=== PATIENT | female | born 1990 | race Caucasian/White ===

== ENCOUNTER 2020-05-27 14:39 | Outpatient (REF) | payer BC, SELFPAY | END 2020-05-27 14:40 | disposition home or self-care (01) | LOC: HO.LAB 14:39 | PROVIDERS: Visit Provider Internal Medicine | DX: Z20.822 Contact with and (suspected) exposure to COVID-19 (principal) | CPT/HCPCS: 36415; C9803; U0003; U0005 ==

== ENCOUNTER 2020-06-02 15:02 | Outpatient (REF) | payer BC, SELFPAY | END 2020-06-02 15:03 | disposition home or self-care (01) | LOC: HO.LAB 15:02 | PROVIDERS: Visit Provider Internal Medicine | DX: Z20.822 Contact with and (suspected) exposure to COVID-19 (principal) | CPT/HCPCS: 36415; C9803; U0003; U0005 ==

== ENCOUNTER 2020-07-04 12:54 | Outpatient (REF) | payer BC, SELFPAY ==
[2020-07-04 14:05] LABS: COVID-19 Test Negative (Negative); IDNOW Serial# 55D5AD1C
== END 2020-07-04 12:55 | disposition home or self-care (01) ==
LOC: HO.LAB 12:54
PROVIDERS: Visit Provider Internal Medicine
DX: Z20.822 Contact with and (suspected) exposure to COVID-19 (principal)
CPT/HCPCS: 36415; 87635; C9803

== ENCOUNTER 2024-12-04 00:57 | Emergency (ER) | payer BC, SELFPAY ==
[2024-12-04 01:00] VITALS: BP 144/71; PULSE 109; RESP 20; TEMP 36.4; O2SAT 99; BMI 23.2
[2024-12-04 01:19] LABS: MANUAL DIFF FLAG NO
[2024-12-04 01:22] LABS: Hematocrit 33.7 % (37.0-47.0); Hemoglobin 11.2 g/dl (12.0-16.0); Imm Gran Abs Auto 0.04 X10*3/uL (0.00-0.03); Imm Gran Pct Auto 0.3 % (0.0-0.4); Lymphocytes Absolute Auto 0.9 X10*3/uL (1.2-4.9); Mean Corpuscular HGB Conc 33.2 g/dl (31.0-35.0); Mean Corpuscular Hemoglobin 26.0 pg (27.0-33.0); Mean Corpuscular Volume 78.2 fL (80.0-98.0); NRBC Abs Auto 0.000 X10*3/uL (0.0-0.012); NRBC Pct Auto 0.0 /100WBC (0.0-0.2); Platelet Count 235 X10*3/uL (160-400); Red Blood Count 4.31 X10*6/uL (4.20-5.50); White Blood Count 11.7 X10*3/uL (4.8-10.8)
[2024-12-04 01:51] LABS: Alanine Aminotransferase 28 U/L (0-31); Albumin Level 4.8 g/dL (3.5-5.0); Alkaline Phosphatase 61 U/L (39-117); Anion Gap 14 (12-20); Aspartate Amino Transferase 29 U/L (5-31); Blood Urea Nitrogen 11 mg/dL (9-16); Calcium 9.3 mg/dL (8.4-10.2); Carbon Dioxide 23 mmol/L (22-29); Chloride 109 mmol/L (96-108); Creatinine Clr Calc Pharmacy 84.2; Estimated Glomerular Filt Rate > 60; Lipase 24 U/L (8-78); Potassium 3.8 mmol/L (3.3-5.1); Sodium 142 mmol/L (135-145); Total Protein 8.1 g/dL (6.5-8.0)
[2024-12-04 05:02] LABS: Appearance Urine Clear; Glucose Urine UA Negative (Negative); PH 5.0 (5.0-9.0); Specific Gravity - Urine 1.025 (1.005-1.025); UMIC TRIGGER UACC YES; UPreg QC Valid YES
--- NOTE | 2024-12-04 05:07 | PC.NURSE ---
Pt medicated as per MAY. Tolerated enema well. Effectiveness pending
[2024-12-04 05:14] LABS: UACC Culture Trigger YES
--- NOTE | 2024-12-04 05:47 | PC.NURSE ---
PT moved small bowel in bathroom and vomited on the [facility] bathroom floor.
--- NOTE | 2024-12-04 06:52 | ED.ABDPAIN ---
HPI - Abdominal Pain General Chief Complaint: Abdominal Pain Stated Complaint: right side pain Time Seen by Provider: 12/04/24 03:54 Source: patient Mode of arrival: ambulatory Limitations: no limitations History of Present Illness ED Provider: Dr. Dennise Leon HPI narrative: 34-year-old female with a history of constipation presenting with left lower quadrant abdominal pain ongoing for the last several days. Admits she has not had a bowel movement in the last 3 days. Admits that this has been an ongoing issue for her. Describes nausea but no vomiting. Denies dysuria, hematuria, hematochezia or melena, vaginal bleeding or discharge, fevers or chest pain. Had been feeling well prior to this. No known sick contacts or recent antibiotic use. Does admit to poor fluid intake and fiber intake. Related Data Previous Rx's ?Medication ?Instructions ?Recorded cephalexin 500 mg capsule 500 mg PO QID 7 days #28 caps 12/04/24 psyllium husk 3.4 gram/5.4 gram 1 tbsp PO DAILY #660 grams 12/04/24 oral powder Allergies Allergy/AdvReac Type Severity Reaction Status Date / Time No Known Allergies (No Known Allergy Verified 12/04/24 01:02 Allergies*) Review of Systems Review of Systems As per HPI, full review of systems performed and negative but for the above mentioned pertinent positives and negatives. [facility] Social History Social History Advance Directives: No Advance Directives Information Provided: Yes Do you have a plan to hurt others: No Plan Physical Exam ED Exam Exam: GENERAL: Ill-Appearing, appears uncomfortable. SKIN: Normal skin color for ethnicity, warm, dry, no rashes noted. HEENT: Normocephalic, atraumatic, no stridor, dry mucous membranes, dentition intact, EOMI, PERRLA. NECK: Soft, supple, full ROM, midline structures nontender, no step-offs, no deformities, no lymphadenopathy. CHEST: Heart regular rhythm, no murmurs, symmetric chest rise and fall. PULMONARY: Clear to auscultation bilaterally, diminished at the bases, no labored breathing, no wheezes/rhales/rhonchi. ABDOMINAL: Softly distended, diffusely tender to palpation without rebound or guarding, quiet bowel sounds in all quadrants. : Deferred. MUSCULOSKELETAL: Normal tone, full range of motion, no deformities, no peripheral edema. NEURO: Alert and oriented x3, CN II through XII intact, equal strength and sensation bilateral upper and lower extremities, no focal neurologic deficits. PSYCHIATRIC: Flat affect, fluid speech, good eye contact and appropriate demeanor. Vital Signs: Vital Signs - 24 hr 12/04/24 01:00 Temperature 97.6 F Pulse Rate 109 H Respiratory Rate 20 Blood Pressure 144/71 H Pulse Oximetry 99 Oxygen Delivery Method Room Air BMI result Body Mass Index 23.2 Medical Decision Making Medical Decision Making [facility] Narrative: This patient presents today with a chief complaint of abdominal pain. Differential diagnosis for this patient is broad. It includes appendicitis, cholecystitis, bowel obstruction, peptic ulcer disease, pyelonephritis, vascular pathology, among many others. A broad-based workup based on history and physical examination was obtained. Patient has evidence of urinary tract infection. Covered with Keflex. She also had severe constipation and is requesting an enema. She was provided with 1 and had a significant bowel movement. Using shared decision making, plan for discharge home to follow-up with primary care and/or specialist. Patient understands and agrees with plan for discharge. Discharged home in stable condition. Differential Diagnosis Differential Diagnoses: The differential diagnosis associated with the presentation includes (As above) Admission/Observation Consideration of admission/observation: Escalation of care including admission/observation considered Lab Data [facility] Lab Attestation statement: I reviewed the patient's lab results. 12/04/24 01:15 12/04/24 01:15 Labs: Lab Results 12/04/24 12/04/24 Range/Units 01:15 04:54 WBC 11.7 H (4.8-10.8) X10*3/uL RBC 4.31 (4.20-5.50) X10*6/uL Hgb 11.2 L (12.0-16.0) g/dl Hct 33.7 L (37.0-47.0) % MCV 78.2 L (80.0-98.0) fL MCH 26.0 L (27.0-33.0) pg MCHC 33.2 (31.0-35.0) g/dl RDW 14.8 (11.0-16.0) % Plt Count 235 (160-400) X10*3/uL MPV 11.2 (9.4-12.3) fL Immature Gran % (Auto) 0.3 (0.0-0.4) % Neut % (Auto) 84.6 H (45-73) % Lymph % (Auto) 7.9 L (20-40) % [place] % (Auto) 6.3 (2-11) % Eos % (Auto) 0.7 (0-4) % Baso % (Auto) 0.2 (0-2) % Lymph # (Auto) 0.9 L (1.2-4.9) X10*3/uL [place] # (Auto) 0.7 (0.1-1.2) X10*3/uL Eos # (Auto) 0.1 (0.0-0.4) X10*3/uL Baso # (Auto) 0.0 (0.0-0.2) X10*3/uL Abs Immat Gran (auto) 0.04 H (0.00-0.03) X10*3/uL Absolute Neuts (auto) 9.9 H (2.0-8.3) x10*3/uL Absolute Nucleated RBC 0.000 (0.0-0.012) X10*3/uL Nucleated RBC % (auto) 0.0 (0.0-0.2) /100WBC Sodium 142 (135-145) mmol/L Potassium 3.8 (3.3-5.1) mmol/L Chloride 109 H (96-108) mmol/L Carbon Dioxide 23 (22-29) mmol/L Anion Gap 14 (12-20) BUN 11 (9-16) mg/dL Creatinine 0.82 (0.5-1.4) mg/dL Estim Creat Clear Calc 84.2 Estimated GFR > 60 Random Glucose 126 H (60-115) mg/dL Calcium 9.3 (8.4-10.2) mg/dL Total Bilirubin 0.2 (0.0-1.0) mg/dL AST 29 (5-31) U/L ALT 28 (0-31) U/L Alkaline Phosphatase 61 (39-117) U/L Total Protein 8.1 H (6.5-8.0) g/dL Albumin 4.8 (3.5-5.0) g/dL Lipase 24 (8-78) U/L Urine Color Yellow Urine Appearance Clear Urine pH 5.0 (5.0-9.0) Ur Specific [place] 1.025 (1.005-1.025) Urine Protein Trace (Neg-Trace) mg/dL Urine Glucose (UA) Negative (Negative) mg/dL Urine Ketones 15 (Negative) mg/dL Urine Blood Moderate (2+) H (Negative) Urine Nitrite Negative (Negative) Ur Leukocyte Esterase Small (1+) H (Negative) Urine RBC 11-20 H (0-2) /HPF Urine WBC 6-10 H (0-5) /HPF Ur Squamous Epith Cells 6-10 (0-2) /HPF Urine Bacteria Trace (None Seen) Hyaline Casts 0-2 (0-2) /LPF Urine Test NEGATIVE (NEGATIVE) Independent Historian Clinical information obtained from an independent historian. History obtained from or confirmed by: Spouse External Record Review External record reviewed: Inpatient record Prescription Management I considered prescription management with: Antibiotic and Other (Fiber) Chronic Conditions Patient?s care impacted by: Other (Chronic constipation) Medications Administered Discontinued Medications Generic Name Dose Route Start Last Admin Trade Name Freq PRN Reason Stop Dose Admin Bisacodyl 10 mg 12/04/24 04:06 12/04/24 04:39 Bisacodyl 5 Mg Tablet. PO 12/04/24 04:07 10 mg ONCE ONE Administration Cephalexin HCl 500 mg 12/04/24 06:57 12/04/24 07:18 Cephalexin 500 Mg Capsule PO 12/04/24 06:58 500 mg ONCE ONE Administration Magnesium Citrate 300 ml 12/04/24 04:06 12/04/24 04:39 Magnesium Citrate 300 Ml Solution PO 12/04/24 04:07 300 ml ONCE ONE Administration Ondansetron HCl 4 mg 12/04/24 05:47 12/04/24 06:51 Ondansetron Odt 4 Mg Tab.Rapdis TRANSLINGU 12/04/24 05:48 Not Given ONCE ONE Sodium Biphosphate/Sodium Phosphate 133 ml 12/04/24 04:06 12/04/24 04:39 Sodium Phosphate,[place]-Dibasic 133 Ml Enema IN 12/04/24 04:07 133 ml ONCE ONE Administration Discharge Plan Discharge Clinical Impression: Constipation, UTI (urinary tract infection) Patient Disposition: Home, Self-Care Instructions: Urinary Tract Infection in Women (ED), High Fiber Diet (ED) Additional Instructions: Take your antibiotic as prescribed until the course is completed. Do not stop this medication early if you start to feel better. You need to add more fiber to your diet. It is definitely contributing to your constipation. Try taking fiber powder once a day to help with constipation. Be sure to take it with plenty of water to introduce more fluid into your gut. Return to the emergency department if you develop any new or worsening symptoms including: Worsening abdominal pain, fevers greater than 100?, vomiting, any new symptom that concerns you. Call 911 with any medical emergency. Prescriptions: New cephalexin 500 mg capsule 500 mg PO QID 7 Days Qty: 28 0RF psyllium husk 3.4 gram/5.4 gram powder 1 tbsp PO DAILY Qty: 660 0RF Rx Instructions: mix into at least 8 oz of water or juice before administering Interventions: ED Discharge Assessment Last Done: 12/04/24 07:20 Discharge Date/Time: 12/04/24 08:01 Print Language: Turkish
[2024-12-04 07:20] VITALS: BP 112/72; PULSE 88; RESP 16; TEMP 37; O2SAT 100
== END 2024-12-04 08:01 | disposition home or self-care (01) ==
PROVIDERS: Emergency Provider Emergency Medicine
DX: K59.00 Constipation, unspecified (principal); N39.0 Urinary tract infection, site not specified; R10.32 Left lower quadrant pain
CPT/HCPCS: 36415; 80053; 81001; 81003; 81025; 83690; 85025; 87086; 99284